=== PATIENT | male | born 1945 | race Caucasian/White ===

== ENCOUNTER → 2016-09-18 | Outpatient (CLI) | payer OTHER, BC ==
[2016-09-18 13:33] LABS: BASO % 0.6 %; BASO ABS # 0.04 K/uL (0-0.2); COMPLETE YES; EOS % 3.8 %; IG% 0.2 %; LYMPH % 29.5 %; LYMPH ABS # 1.85 K/uL (1.2-3.4); MEAN CELL VOLUME 94.3 fL (80-100); MEAN CORPUSCULAR HEMOGLOBIN 31.9 pg (25-34); MEAN CORPUSCULAR HGB CONC 33.8 g/dl (32-36); MEAN PLATELET VOLUME 10.1 fL (7.4-10.4); MONO % 15.6 %; NEUT % 50.3 %; PLATELET COUNT 279 K/uL (130-400); RED BLOOD COUNT 4.77 M/uL (4.7-6.1); WHITE BLOOD COUNT 6.27 K/uL (4.8-10.8)
[2016-09-18 13:47] LABS: BUN/CREATININE RATIO 12.7 (10-20); CALCIUM 8.6 mg/dl (8.5-10.1); CREATININE 0.94 mg/dl (0.60-1.40)
[2016-09-18 13:49] LABS: ALB/GLOB RATIO 1.1 (0.9-2)
== END | disposition home or self-care (01) ==
LOC: C.LABMFLN 10:10
PROVIDERS: ATTEND Family Medicine
DX: K86.89 Other specified diseases of pancreas (principal); Z11.59 Encounter for screening for other viral diseases

== ENCOUNTER → 2016-11-11 | Outpatient (CLI) | payer OTHER, BC ==
[2016-11-11 18:44] LABS: C-REACTIVE PROTEIN < 0.29 mg/dl (0-0.29); IMMUNOGLOBULN M 79.1 mg/dL (40-230)
== END | disposition home or self-care (01) ==
LOC: C.LABMFLN 11:06
PROVIDERS: ATTEND Internal Medicine
DX: K86.1 Other chronic pancreatitis (principal); D89.89 Other specified disorders involving the immune mechanism, not elsewhere classified

== ENCOUNTER → 2016-12-29 | Outpatient (CLI) | payer OTHER, BC | END | disposition home or self-care (01) | LOC: C.LABMFLN 08:05 | PROVIDERS: ATTEND Family Medicine | DX: Z86.73 Personal history of transient ischemic attack (TIA), and cerebral infarction without residual deficits (principal); E78.5 Hyperlipidemia, unspecified; Z85.46 Personal history of malignant neoplasm of prostate ==

== ENCOUNTER → 2017-04-16 | Outpatient (CLI) | payer OTHER, BC | END | disposition home or self-care (01) | LOC: C.LABMFLN 10:48 | PROVIDERS: ATTEND Family Medicine | DX: R19.7 Diarrhea, unspecified (principal) ==

== ENCOUNTER → 2017-09-28 | Outpatient (CLI) | payer OTHER, BC ==
[2017-09-28 20:14] LABS: INFLUENZA A PCR POS for Influ A (NEG); INFLUENZA B PCR Neg for Influ B (NEG)
== END | disposition home or self-care (01) ==
LOC: C.LABMFLN 10:26
PROVIDERS: ATTEND Physician Assistant
DX: R50.9 Fever, unspecified (principal)

== ENCOUNTER → 2017-10-14 | Outpatient (CLI) | payer OTHER, BC ==
[2017-10-16 17:14] LABS: QUANTIF MITOGEN-NIL 9.02 IU/ML; QUANTIFERON NEGATIVE (NEGATIVE); QUANTIFERON NIL 0.09 IU/ML
== END | disposition home or self-care (01) ==
LOC: C.LABMFLN 10:21
PROVIDERS: ATTEND Internal Medicine
DX: D89.89 Other specified disorders involving the immune mechanism, not elsewhere classified (principal); K86.1 Other chronic pancreatitis; Z79.899 Other long term (current) drug therapy

== ENCOUNTER → 2017-12-22 | Outpatient (CLI) | payer OTHER, BC | END | disposition home or self-care (01) | LOC: C.LABMFLN 10:01 | PROVIDERS: ATTEND Family Medicine | DX: Z85.46 Personal history of malignant neoplasm of prostate (principal) ==

== ENCOUNTER 2022-01-07 05:51 | Inpatient (IN) ==
--- NOTE | 2022-01-03 14:31 | Anesthesiology Consultation ---
Date of Service January 03, 2022 Assessment & Plan (1) Encounter for pre-operative examination: Chart Review Chart Review: Acceptable Risk for Surgery (pending preop Covid testing results ) and Patient NOT seen in Pre Admission Testing Per nursing assessment 01/02/2022, patient denies any recent travel. No known COVID infection in the past 90 days. Patient is fully vaccinated for COVID. No known Covid positive exposures or Covid related symptoms. Preop Covid testing 01/03/22= results pending Cystoscopy, ureteroscopy, retrograde pyelogram 11/11/2021 = done under [facility] with LMA #5. Atraumatic placement x1. History Surgery Operation Date: 01/07/22 08:15 Proposed Procedures p Robotic Laparoscopic Assisted Left Nephroureterectomy, Lymph Node Dissection, Intravesical Instillation of Gemcitabine - David Almaraz MD Height/Weight Height: 5 ft 9 in Weight: 65.317 kg Allergies Allergy/AdvReac Type Severity Reaction Status Date / Time No Known Allergies Allergy Verified 01/02/22 07:32 Medications Home Medications Medication Instructions Recorded Confirmed Last Taken pantoprazole 40 mg tablet,delayed 40 mg PO QAM #90 tab 06/06/21 01/02/22 11/08/21 05:15 release lisinopril 5 mg tablet 5 mg PO BID #180 tab 08/17/21 01/02/22 Unknown aspirin 81 mg tablet,delayed 81 mg PO QAM 01/02/22 01/02/22 Unknown release Past Medical History Medical History (Updated 01/03/22 @ 14:26 by Jina Franco PA-C) Autoimmune sclerosing pancreatitis Follows with Rheumatology at [facility] 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 Diarrhea GERD (gastroesophageal reflux disease) H/O peptic ulcer History of prostate cancer Dx'd 2011; S/p prostatectomy [place] ([place]) Hx-TIA (transient ischemic attack) >5 years ago Hypertension Stenosis of left ureter Left mid to distal ureteral mass- biopsy shows low grade urothelial carcinoma Past Family History Family History Aunt Diabetes Cancer Father Diabetes Stroke Mother Leukemia Other No family history of adverse response to anesthesia Past Surgical History Surgical History History of biliary duct stent placement removed History of colonoscopy History of cystoscopy Cystoscopy, left Retrograde Pyelogram with radiographic interpretation, Left Ureteroscopy, Left Ureteral Mass Biopsy History of ERCP History of prostate biopsy History of prostatectomy 01/29/12 [facility] History of tooth extraction S/P cataract surgery bilat Social History Smoking Status: Current every day smoker tobacco type: cigars Smoking cigarettes per day: 3 cigars per day Do You Dip or Chew Tobacco: No Hx Alcohol Use: No Alcohol type: beer alcohol intake frequency: holidays/special occasions only Hx Substance Use: Yes substance use type: marijuana Substance Use Type Other:: smokes 1-2 joints per week Last Used Substance: Unknown Lab Results Anesthesia Preop Results Results Anesthesia Widget: WBC 6.84 K/uL (4.8-10.8) 01/03/22 Hgb 13.8 g/dL (14.0-18.0) L 01/03/22 Hct 41.1 % (42-52) L 01/03/22 Plt 322 K/uL (130-400) 01/03/22 Na 139 mmol/L (136-145) 01/03/22 K 4.4 mmol/L (3.5-5.1) 01/03/22 Cl 105 mmol/L (98-107) 01/03/22 CO2 31 mmol/L (21-32) 01/03/22 BUN 18 mg/dl (6-23) 01/03/22 Creat 1.06 mg/dl (0.6-1.4) 01/03/22 Glucose Level 103 mg/dl (70-99(Fasting)) H 01/03/22 PT 10.2 Seconds (9.0-12.0) 01/03/22 INR 1.0 (0.9-1.1) 01/03/22 Testing Laboratory Results 11/25/21= UA: trace urine protein, moderate urine blood, 0-4 urine RBC URINE CULTURE: No growth Electrocardiogram Date: 10/22/21 Findings: + NSR @ (66bpm ) Left anterior fascicular block Chest X-Ray Date: 10/22/21 1 view CXR Emphysema without acute process Other Testing Chest CT 11/21/21= A few mildly enlarged right hilar lymph nodes. Although metastatic disease is considered unlikely, these nodes are indeterminate and a follow-up chest CT in 6 months to ensure stability is recommended. Multiple small low suspicion pulmonary nodules which can be assessed on follow-up chest CT. Emphysema. Abdomen/Pelvis CT 11/21/21= Moderate left hydronephrosis and mild hydroureter due to to a mid left ureteral mass suggestive of a urothelial malignancy. In addition, urothelial thickening of the proximal left ureter. No evidence of metastatic disease within the abdomen or pelvis. No change in a 7.4 x 5.1 x 4.3 cm enhancing mass centered within the left psoas muscle with expansion of the left L1-L2 neural foramen. 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
[2022-01-07] MEDS ORDERED: LR 15ML/HR IV SCH (06:00)
[2022-01-07] MEDS ORDERED: CIPROFLOXACIN / D5W 400 MG/200 ML BAG IV SCH (06:00)
[2022-01-07] MEDS ORDERED: GEMCITABINE ONE (07:00)
[2022-01-07] MEDS ORDERED: PROPOFOL IV EMULSION 10 MG/ML 20 ML VIAL IV ONE (07:02)
[2022-01-07] MEDS ORDERED: ROCURONIUM BROMIDE 10 MG/ML 5 ML VIAL IV ONE ×6 (07:02→10:29)
[2022-01-07] MEDS ORDERED: LIDOCAINE 2% 2 ML VIAL/AMP(20MG/ML) INFIL ONE (07:02)
[2022-01-07] MEDS ORDERED: fentaNYL citrate 100 MCG/2 ML VIAL ONE ×2 (07:02→10:16)
--- NOTE | 2022-01-07 07:06 | History & Physical Report ---
Date of Service January 07, 2022 Assessment & Plan (1) Urothelial carcinoma of left distal ureter: Plan: 76-year-old male with left distal ureteral mass. To OR for left nephroureterectomy with and possible intravesical instillation of gemcitabine with myself and Dr. Sung Lennon to the OR Patient marked History of Present Illness Primary Care Provider: Mehreen Kasper MD 76-year-old male with a history of prostate cancer status post open prostatectomy. Recent CT scan showed left hydronephrosis and distal left ureteral thickening. Taken to the OR on 11/08/2021 for cystoscopy with left retrograde pyelogram left ureteroscopy and a biopsy of a left ureteral mass. I was unable to get a wire past the mass. The mass returned as low-grade upper tract cancer. Discussed that a left nephroureterectomy was the best option due to the size of the mass. He presents for that today. Preop urine culture was negative. Creatinine is 1.06. 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 Diarrhea GERD (gastroesophageal reflux disease) H/O peptic ulcer History of prostate cancer Dx'd 2011; S/p prostatectomy [place] ([place] of [place]) Hx-TIA (transient ischemic attack) >5 years ago Hypertension Stenosis of left ureter Left mid to distal ureteral mass- biopsy shows low grade urothelial carcinoma Surgical History History of biliary duct stent placement removed History of colonoscopy History of cystoscopy Cystoscopy, left Retrograde Pyelogram with radiographic interpretation, Left Ureteroscopy, Left Ureteral Mass Biopsy History of ERCP History of prostate biopsy History of prostatectomy 01/29/12 [facility] History of tooth extraction S/P cataract surgery bilat Family History Aunt Diabetes Cancer Father Diabetes Stroke Mother Leukemia Other No family history of adverse response to anesthesia Social History Smoking Status: Current every day smoker Cigarettes Per Day: 3 cigars per day; Second Hand Exposure: No; Do You Dip or Chew Tobacco: No; Tobacco Cessation Education Requested by Patient: No Hx Alcohol Use: No Hx Substance Use: Yes Last Used Substance: Unknown Substance Use Type Other:: smokes 1-2 joints per week Preferred Language: Nepalese Communication Ability: Effective Rn Training Required: No Beliefs That Will Affect Care: None marital status: Current Living Situation: Spouse current occupational status: retired Other Information That Helps Us Care for You: No Feels Safe at Home: Yes Safety Concerns: Feels Safe At This Time Dental Care, Regularly: No Physical Activity Frequency: Does not Exercise Seatbelt Use: always Sunscreen Use: Yes Do you think of yourself as: straight/heterosexual Assistive Devices: Glasses Review of Systems 14 point review of systems negative outside of what is listed above in HPI Physical Exam Physical Exam: General: Alert and oriented, no acute distress HEENT: Normocephalic, mucous membranes moist Pulmonary: Nonlabored respirations Abdomen: Nondistended Extremities: Moves all 4 spontaneously Neuro: No gross deficits Skin: Warm, dry, no rashes noted Results & Data ([facility]) Vital Signs (Past 12 Hours) Vital Signs Temp Pulse Resp BP Pulse Ox 01/07/22 06:24 36.7 C 72 16 157/95 H 97
[2022-01-07] MEDS ORDERED: ONDANSETRON INJ 2 MG/ML 2 ML VIAL ONE (07:09)
[2022-01-07] MEDS ORDERED: DEXAMETHASONE SOD INJ 4 MG/ML VIAL ONE (07:09)
[2022-01-07] MEDS ORDERED: BUPIVACAINE 0.5 % 5 MG/1 ML MPF 30ML VIAL ONE (07:23)
[2022-01-07] MEDS ORDERED: MEPERIDINE HCL 25 MG/ML CARP/VIAL IV PRN (07:26)
[2022-01-07] MEDS ORDERED: ATROPINE SULFATE 0.1 MG/ML 10ML SYR IV PRN (07:26)
[2022-01-07] MEDS ORDERED: ePHEDrine sulfate 50 MG/ML AMP IV PRN (07:26)
[2022-01-07] MEDS ORDERED: ONDANSETRON INJ 2 MG/ML 2 ML VIAL IV PRN ×2 (07:26→12:29)
[2022-01-07] MEDS ORDERED: LABETALOL HCL IV 5 MG/ML 20ML IV PRN (07:26)
[2022-01-07] MEDS ORDERED: PHENYLEPHRINE 100MCG/ML 5ML SYR IV PRN (07:26)
[2022-01-07] MEDS ORDERED: TISSEEL FIBRIN SEALANT 10ML TOP ONE (08:50)
[2022-01-07] MEDS ORDERED: GLYCOPYRROLATE 0.2 MG/ML VIAL ONE (10:29)
[2022-01-07] MEDS ORDERED: NEOSTIGMINE METHYLSULFATE 1 MG/ML 10ML VIAL ONE (10:29)
--- NOTE | 2022-01-07 11:14 | Operative Report ---
PG Post Operative Report Pre & Post Diagnosis Operation Date: 01/07/22 07:30 Pre-Op Diagnosis: Urothelial Carcinoma of Left Distal Ureter Post-Op Diagnosis: Urothelial Carcinoma of Left Distal Ureter I identified the patient and participated in the time-out.: Yes Procedure Operation Date: 01/07/22 07:30 Actual Procedures p Robotic assisted Laparoscopic Left Nephroureterectomy(Left) - David Almaraz MD Surgeon David Almaraz MD [employer] Baljeet Cantu Estimated Blood Loss 100 Findings Consistent with Post-Op Diagnosis Specimens Kidney and left ureter Description of Procedure He was identified in the preoperative holding area and appropriate informed consents reviewed and completed and he was transported to the operating suite. Upon arrival received appropriate preoperative antibiotics in the form of ciprofloxacin. He was placed under general anesthesia and positioned in a [id number] left side up lateral decubitus position with the bed flexed. The abdomen was insufflated with a Veress needle passed into the left upper quadrant. We then marked tentative robotic port sites with the first port p laced at the costal margin just lateral to the rectus border the second placed approximately 8 cm inferior to the third placed approximately 8 cm inferior in the fourth placed in the midline penitentiary between the umbilicus and the pubic symphysis. A 12 mm social media assistant port was placed in the midline approximately 6 cm superior to the umbilicus. These were all placed under direct vision after the top port was placed with a Visiport. Of note there was no significant adhesive disease or other abnormality. After docking the robot we began to incise the white line of Toldt mobilized the colon medially. In the pelvis I had to free this from the lateral pelvic sidewall. We were able to identify the ureter as it coursed over the iliac vessels. There was a notable swelling in this area consistent with the tumor. I dissected around it circumferentially and elevated the ureter off the underlying structures. We then traced this both superiorly and inferiorly as far as we could easily dissect. This was done with a combination of monopolar electrocautery and some with bipolar electrocautery. As we progressed into the pelvis we dissected towards the junction of the ureter and the bladder. Of note, he has had a prior open prostatectomy but this did not seem to drastically affect her dissection. As we approached the bladder we distended with saline to help demarcate the bladder junction. Before dissecting completely to the bladder I did place a clip across the distal ureter to ensure no unintentional tumor spillage. Before transecting the bladder cuff I placed a 3 OV lock suture through the bladder mucosa just superior to the anticipated incision for the bladder cuff. I then incised the bladder cuff opening the bladder. We unclamped the bladder and allow the saline to drain as I closed the bladder utilizing the previously placed 3 OV lock. The opening closed without difficulty and was watertight. This entirely freed the ureter and cuff. Hemostasis in the pelvis was excellent. We then turned our attention towards the kidney portion of the case. I repositioned the camera and robotic instruments to allow better access to the kidney and I continue to incise the white line of Toldt and expose Gerota's fascia. Of note, the patient has a psoas mass that has been present for some time and this slightly altered my ability to dissect. As planned prior to the procedure, as I reached the superior limits of my dissection I undocked the robot and made a Saab style incision in the left lower quadrant utilizing one of the ports previously placed. I then finished the surgery using a hand- assisted lap approach. We continued to mobilize the kidney from the underside of the spleen and omentum. I incised the peritoneum at the upper aspect of the kidney to allow better mobilization. I went back to my prior dissection of the gonadal and ureter and followed them up towards the hilum. Of note, consistent with preoperative imaging, he has a lower pole artery. This was controlled with 2 Weck clips placed on the aortic side and 1 clip placed on the kidney side and then transected utilizing harmonic scalpel. I then dissected to the inferior aspect of the renal vein. I was able to identify the adrenal vein on the superior aspect and dissected a window just lateral to the adrenal vein. I then completely controlled the renal vein and main artery with a single staple load position lateral to the adrenal vein. A second staple load was placed between the upper pole of the kidney and the adrenal followed by completion of the superior dissection utilizing harmonic scalpel. The lateral attachments were freed and although there was some adherence of the posterior aspect of the kidney to the underlying psoas mass I was able to free this bluntly. We then en sure the ureter was entirely dissected and freed before extracting the specimen through the previously made hand port. Hemostasis was excellent. The 12 mm social media assistant port and the superiormost robotic port were closed with a 0 Vicryl [id number] suture. The hand port was closed utilizing 3 layers of 0 Vicryl. All skin incisions were closed with 4-0 Monocryl and Dermabond. Half percent Marcaine was utilized infiltrate all incisions prior to closure. A drain was placed through the inferior most robotic port and this was sutured in place utilizing a 3-0 nylon. Quick catheter was left in place and the case was concluded. He was reversed of anesthesia and taken to the recovery room in stable condition. There were no complications. Of note Dr. Baljeet Cantu assisted from incision to closure and through all aspects of the case. I attest to the content of the Intraoperative Record and any orders documented therein. Any exceptions are noted below.
[2022-01-07] MEDS: fentaNYL citrate 100 MCG/2 ML VIAL IV PRN ×4 (11:20→11:35)
[2022-01-07 11:36] LABS: BUN Creatinine Ratio 15.6 (10-20); Calcium 8.3 mg/dl (8.5-10.1); Creatinine Clr Calc Pharmacy 54.9 ml/min; Est GFR (African American) 76.5 ml/min; Potassium 3.9 mmol/L (3.5-5.1)
[2022-01-07 11:41] LABS: Basophils # (auto) 0.01 K/uL (0-0.2); Basophils % (auto) 0.1 %; Eosinophils # (auto) 0.01 K/uL (0-0.5); Eosinophils % (auto) 0.1 %; Hematocrit (blood only) 38.3 % (42-52); Hemoglobin 12.8 g/dL (14.0-18.0); Immature Granulocytes # (auto) 0.08 K/uL (0.00-0.02); Immature Granulocytes % (auto) 0.4 %; Lymphocytes # (auto) 1.28 K/uL (1.2-3.4); Lymphocytes % (auto) 6.5 %; Mean Corpuscular Hemoglobin 31.6 pg (25-34); Mean Corpuscular Hgb Conc 33.4 g/dL (32-36); Mean Corpuscular Volume 94.6 fL (80-100); Mean Platelet Volume 9.5 fL (7.4-10.4); Monocytes # (auto) 0.07 K/uL (0.11-0.59); Monocytes % (auto) 0.4 %; Neutrophils # (auto) 18.26 K/uL (1.4-6.5); Neutrophils % (auto) 92.5 %; Platelet Count 284 K/uL (130-400); RDW Coefficient of Variation 14.1 % (11.5-14.5); RDW Standard Deviation 48.6 fL (36.4-46.3); Red Blood Count 4.05 M/uL (4.7-6.1); White Blood Count 19.71 K/uL (4.8-10.8)
[2022-01-07] MEDS: HYDROmorphone INJ 1 MG/ML SYRINGE IV PRN ×4 (11:41→11:56)
--- NOTE | 2022-01-07 12:05 | Anesthesiology Progress Note ---
Date of Service January 07, 2022 Anesthesia Post Procedure Vital Signs Vital Signs: Temp Pulse Pulse Resp BP Pulse Ox 01/07/22 11:55 86 19 157/77 H 94 01/07/22 11:45 56 L 15 163/80 H 100 01/07/22 11:35 77 19 156/79 H 100 01/07/22 11:25 62 12 156/77 H 100 01/07/22 11:15 63 16 143/83 H 100 01/07/22 11:05 74 17 152/77 H 100 01/07/22 10:58 36.2 C L 86 18 159/85 H 100 01/07/22 06:24 36.7 C 72 16 157/95 H 97 Pain Intensity Abdomen: Pain Intensity: 1 Transfer of Care Handoff Completed per policy Notes Mental Status: alert / awake / arousable Patient Amnestic to Procedure: Yes Nausea / Vomiting: adequately controlled Pain: adequately controlled Airway Patency, RR, SpO2: stable & adequate BP & HR: stable & adequate Hydration State: stable & adequate Anesthetic Complications: no major complications apparent and Pt Satisfied with anesthetic care
[2022-01-07] MEDS ORDERED: MoRPHine SULFATE 2 MG/ML CARP IV PRN (12:29)
[2022-01-07] MEDS ORDERED: oxyCODONE HCL IR 5 MG TAB (IMMEDIATE RELEASE) PO PRN (12:29)
[2022-01-07] MEDS ORDERED: ACETAMINOPHEN 325 MG TAB PO PRN (12:29)
[2022-01-07] MEDS ORDERED: MoRPHine SULFATE 4 MG/ML 1 ML CARP\\VIAL IV PRN (12:29)
[2022-01-07] MEDS: LACTATED RINGER'S 1,000 ML IV SCH ×2 (12:30→21:01)
[2022-01-07] MEDS: WATER INSTIL SCH (13:20)
[2022-01-07] MEDS: GEMCITABINE HCL INSTIL SCH (13:20)
[2022-01-07] MEDS: STERILE INSTIL SCH (13:20)
[2022-01-07] MEDS: oxyCODONE HCL IR 5 MG TAB (IMMEDIATE RELEASE) PO PRN ×2 (13:25→17:31)
[2022-01-07] MEDS: ceFAZolin 2000MG 2,000 MG/15 ML SYR IV SCH ×2 (13:29→20:59)
[2022-01-07] MEDS: DOCUSATE SODIUM 100 MG CAP PO SCH (20:59)
[2022-01-07] MEDS: lisinopril 5 MG TAB PO SCH (21:00)
[2022-01-07] MEDS: HEPARIN SOD 5,000 UNIT/0.5 ML VIAL SQ SCH (21:00)
[2022-01-08 06:12] LABS: Hematocrit (blood only) 35.9 % (42-52); Hemoglobin 11.8 g/dL (14.0-18.0); Immature Granulocytes # (auto) 0.04 K/uL (0.00-0.02); Immature Granulocytes % (auto) 0.3 %; Lymphocytes # (auto) 1.27 K/uL (1.2-3.4); Lymphocytes % (auto) 9.1 %; Mean Corpuscular Hemoglobin 31.1 pg (25-34); Mean Corpuscular Hgb Conc 32.9 g/dL (32-36); Mean Corpuscular Volume 94.7 fL (80-100); Mean Platelet Volume 9.6 fL (7.4-10.4); Monocytes # (auto) 1.61 K/uL (0.11-0.59); Monocytes % (auto) 11.5 %; Neutrophils # (auto) 11.05 K/uL (1.4-6.5); Neutrophils % (auto) 79.1 %; Platelet Count 269 K/uL (130-400); RDW Coefficient of Variation 14.2 % (11.5-14.5); RDW Standard Deviation 49.3 fL (36.4-46.3); Red Blood Count 3.79 M/uL (4.7-6.1); White Blood Count 13.97 K/uL (4.8-10.8)
[2022-01-08 06:34] LABS: BUN Creatinine Ratio 14.8 (10-20); Calcium 8.2 mg/dl (8.5-10.1); Creatinine Clr Calc Pharmacy 42.5 ml/min; Est GFR (African American) 52.5 ml/min; Est GFR (Non-African American) 45.3 ml/min; Potassium 4.5 mmol/L (3.5-5.1)
[2022-01-08] MEDS: LACTATED RINGER'S 1,000 ML IV SCH ×2 (07:30→17:30)
[2022-01-08] MEDS: lisinopril 5 MG TAB PO SCH ×2 (07:31→21:00)
[2022-01-08] MEDS: DOCUSATE SODIUM 100 MG CAP PO SCH ×2 (07:32→21:00)
[2022-01-08] MEDS: PANTOprazole 40 MG TAB PO SCH (07:32)
[2022-01-08] MEDS: HEPARIN SOD 5,000 UNIT/0.5 ML VIAL SQ SCH ×2 (07:32→21:00)
--- NOTE | 2022-01-08 08:28 | Urology Progress Note ---
Date of Service January 08, 2022 Assessment & Plan (1) Urothelial carcinoma of left distal ureter: Plan: 76-year-old male who is status post robotic/hand-assisted left nephroureterectomy on 01/07/2022 Continue pain regimen Advance to regular diet Maintain Quick catheter We will likely remove DEEP later today or tomorrow Creatinine uptrending which is expected. Leukocytosis downtrending. Continue antibiotics Will likely decrease IV fluids later today Continue heparin. Ambulate Anticipate discharge home tomorrow Admission and Anticipated Discharge Date Admission Date: January 07, 2022 Subjective No acute issues overnight. Hemodynamically stable. Minimal drain output. Urine output is appropriate. Leukocytosis is downtrending and likely was reactive. Creatinine has slightly up trended which is as expected. Pain well controlled. Tolerating clear liquid diet. Out of bed to chair yesterday. Yet to pass flatus. Review of Systems Review of Systems: 14 point review of systems negative outside of what is listed above in HPI Physical Exam Physical Exam: General: Alert and oriented, no acute distress HEENT: Normocephalic, mucous membranes moist Cardiovascular: Regular rate Pulmonary: Nonlabored respirations Abdomen: Nondistended, appropriately tender, soft. Incisions clean dry and intact. DEEP drain draining minimal serosanguineous fluid : Quick catheter draining clear urine Extremities: Moves all 4 spontaneously Neuro: No gross deficits Skin: Warm, dry, no rashes noted Results & Data ([facility]) Vital Signs (Past 12 Hours) Vital Signs Temp Pulse Resp BP Pulse Ox 01/08/22 07:12 36.7 C 18 142/74 H 98 01/08/22 02:43 36.9 C 68 18 128/64 94 01/07/22 23:22 37 C 75 16 121/67 95 01/07/22 20:30 36.9 C 65 16 138/70 97 PG Care Time/CCT Total # of Minutes Spent Total Time Spent with Patient: Total time spent is greater than 50% in coordination of care (as documented) at patient's floor/unit and/or counseling patient: [place] [address] Subseq Hosp Care Lvl 2 Patient Type Established Diagnoses Urothelial carcinoma of left distal ureter C66.2
[2022-01-08] MEDS: oxyCODONE HCL IR 5 MG TAB (IMMEDIATE RELEASE) PO PRN (21:02)
[2022-01-09] MEDS: LACTATED RINGER'S 1,000 ML IV SCH ×2 (04:09→08:36)
[2022-01-09 06:51] LABS: Basophils # (auto) 0.01 K/uL (0-0.2); Basophils % (auto) 0.1 %; Eosinophils % (auto) 0.9 %; Hematocrit (blood only) 34.7 % (42-52); Hemoglobin 11.6 g/dL (14.0-18.0); Immature Granulocytes # (auto) 0.03 K/uL (0.00-0.02); Immature Granulocytes % (auto) 0.3 %; Lymphocytes % (auto) 13.7 %; Mean Corpuscular Hemoglobin 31.8 pg (25-34); Mean Corpuscular Hgb Conc 33.4 g/dL (32-36); Mean Corpuscular Volume 95.1 fL (80-100); Mean Platelet Volume 9.8 fL (7.4-10.4); Neutrophils # (auto) 8.24 K/uL (1.4-6.5); Platelet Count 240 K/uL (130-400); RDW Standard Deviation 48.9 fL (36.4-46.3); Red Blood Count 3.65 M/uL (4.7-6.1); White Blood Count 10.98 K/uL (4.8-10.8)
--- NOTE | 2022-01-09 07:10 | Urology Progress Note ---
Date of Service January 09, 2022 Assessment & Plan (1) Urothelial carcinoma of left distal ureter: Plan: 76-year-old male who is status post robotic/hand-assisted left nephroureterectomy on 01/07/2022 Continue pain regimen -Continue regular diet Maintain Quick catheter DEEP drain removed yesterday Hemoglobin stable. BMP pending Continue antibiotics Decrease IV fluids Continue heparin. Ambulate Anticipate discharge home later today. Patient will have plain film cystogram and Quick removal next week and then will return to clinic week following for pathology review. Admission and Anticipated Discharge Date Admission Date: January 07, 2022 Subjective No acute issues overnight. Pain well controlled. Hemodynamically stable. To lerating diet and ambulating. DEEP drain removed yesterday. Urine output appropriate via Quick catheter. Hemoglobin stable today, BMP pending. Feels well enough to go home. Review of Systems Review of Systems: 14 point review of systems negative outside of what is listed above in HPI Physical Exam Physical Exam: General: Alert and oriented, no acute distress HEENT: Normocephalic, mucous membranes moist Pulmonary: Nonlabored respirations Abdomen: Soft, appropriately tender, nondistended. Incisions clean dry and intact : Quick catheter draining clear urine. Extremities: Moves all 4 spontaneously Neuro: No gross deficits Skin: Warm, dry, no rashes noted Results & Data ([facility]) Vital Signs (Past 12 Hours) Vital Signs Temp Pulse Pulse Resp BP Pulse Ox 01/09/22 04:10 36.6 C 60 16 145/70 H 95 01/09/22 00:23 36.6 C 65 16 140/74 94 01/08/22 20:07 36.8 C 64 16 147/87 H 92 PG Care Time/CCT Total # of Minutes Spent Total Time Spent with Patient: Total time spent is greater than 50% in coordination of care (as documented) at patient's floor/unit and/or counseling patient: Coding Level of Care Code 43104 Subseq Hosp Care Lvl 2 Diagnoses Urothelial carcinoma of left distal ureter C66.2
[2022-01-09 07:11] LABS: BUN Creatinine Ratio 15.7 (10-20); Calcium 8.2 mg/dl (8.5-10.1); Creatinine Clr Calc Pharmacy 41.4 ml/min; Est GFR (African American) 50.8 ml/min; Est GFR (Non-African American) 43.8 ml/min; Potassium 4.1 mmol/L (3.5-5.1)
[2022-01-09] MEDS: DOCUSATE SODIUM 100 MG CAP PO SCH (08:38)
[2022-01-09] MEDS: lisinopril 5 MG TAB PO SCH (08:39)
[2022-01-09] MEDS: PANTOprazole 40 MG TAB PO SCH (08:39)
[2022-01-09] MEDS: HEPARIN SOD 5,000 UNIT/0.5 ML VIAL SQ SCH (08:40)
--- NOTE | 2022-01-09 13:01 | Discharge Summary ---
Date of Service January 09, 2022 Admission HPI Per Admitting Provider 76-year-old male with urothelial carcinoma of left distal ureter who presented for left nephroureterectomy Admission Exam Per Admitting Provider General: Alert and oriented, no acute distress HEENT: Normocephalic, mucous membranes moist Pulmonary: Nonlabored respirations Abdomen: Nondistended Extremities: Moves all 4 spontaneously Neuro: No gross deficits Skin: Warm, dry, no rashes noted Principal Diagnosis Urothelial carcinoma of left distal ureter Discharge Exam General: Alert and oriented, no acute distress HEENT: Normocephalic, mucous membranes moist Pulmonary: Nonlabored respirations Abdomen: Soft, appropriately tender, nondistended. Incisions clean dry and intact : Quick catheter draining clear urine. Extremities: Moves all 4 spontaneously Neuro: No gross deficits Skin: Warm, dry, no rashes noted Discharge Data Allergies Allergy/AdvReac Type Severity Reaction Status Date / Time No Known Allergies Allergy Verified 01/07/22 06:22 Procedures Performed Operation Date: 01/07/22 07:30 Actual Procedures p Robotic assisted Laparoscopic Left Nephroureterectomy(Left) - David Almaraz MD Hospital Course (1) Urothelial carcinoma of left distal ureter: 76-year-old male who was admitted status post robotic/hand-assisted left nephroureterectomy on 01/07/22. He had no acute issues postoperatively. He remained hemodynamically stable and his pain was well controlled. Tolerated diet and ambulated without issue. DEEP drain had minimal output and was removed postop day #1. Urine output was appropriate via Quick catheter.Leukocytosis downtrended and was likely reactive. Creatinine had slightly up trended which was as expected. He was discharged home with Quick catheter on postop day #2 in stable condition. Patient to have cystogram and Quick removal next week and then will return to clinic for pathology review. Total Time Total Time Spent Total Time Spent (In Minutes): 15 Discharge Plan Discharge Items Patient Disposition: Home - Self-Care Reason For Visit: Urothelial Carcinoma of Left Distal Ureter Discharge Diagnosis: Urothelial Carcinoma of Left Distal Ureter Activity: Per Instructions section Lifting: No more than 25 pounds Bathing Comment: OK to shower. No tub baths or soaks. Sexual Activity: Wait until after follow-up appointment Exercise/Sports: Wait until after follow-up appointment Driving/Machine Use: Do not drive if taking prescription pain medication. Non-emergency contact: Surgeon and Urologist Call non-emergency contact if: you have any medication questions, your pain is not controlled, your pain is worsening, you have a fever, your wound has in creased redness, your wound has increased drainage and your wound pain has increased Follow-up/Referrals: Mehreen Kasper MD [Primary Care Provider] - Baljeet Cantu MD [Physician] - 01/23/22 4:00 pm [facility],Nurse [FAKE FOR SCHEDULES] - 01/14/22 11:30 am Diet: Regular Addtl Attending Provider Instructions: Please take all medications as prescribed and keep all follow-ups as scheduled. Please call the urology office at [phone] with any questions, concerns or need to reschedule appointments for any reason. We are happy to assist you. You are scheduled for a cystogram with [facility] on 01/14/22 at 10:30AM. You can resume your aspirin on 01/14/22. Recovering at home: We recommend having someone with you for the first few days after surgery to help care for you. It is okay to shower. Please avoid swimming, bathing or using hot tub until incisions are well healed. Avoid driving until you are not requiring pain medication any further. Walk at least a few times a day. Increase your distance, as you feel able. Stairs in your home are okay. Please avoid strenuous or sexual activity until your follow-up. We recommend using stool softener (i.e. Colace) to prevent constipation and straining, especially the first two weeks post operatively. This has been sent to your pharmacy. Stay well hydrated. Quick Catheter care: Keep the catheter well secured with either a leg back or leg strap with large bag. Empty your bag when it's about half full. You may notice some blood in the bag. This is normal after surgery and while the catheter is in place. Use mild soap (such as Dove or Dial) and water to wash the catheter and the head of your penis daily, or more frequently if needed. Return to your normal diet, we encourage good protein intake to promote healing. You may shower as normal. Please avoid tub baths or soaking until catheter removed and incisions well healed. Wearing sweat pants while you have the catheter is recommended, they will be more comfortable. Call [facility] at [phone] right away if you have any of the following: Chest pain or trouble breathing (call 911 or go to the hospital) Fever of 101F or higher, uncontrolled vomiting Heavy bleeding, clots, or bright red blood from the catheter Catheter that falls out or stops draining Foul-smelling discharge from your catheter Redness, swelling, warmth, or increased pain at your incision site Drainage, pus, or bleeding from your incision Pending Studies at Discharge: Yes Stand-Alone Forms: [facility], Smoking Cessation Medications and DC Order Prescriptions: New oxycodone-acetaminophen [Percocet] 5-325 mg tablet 1 tab PO Q8H PRN (Reason: Pain) Qty: 7 RF: 0 docusate sodium [Colace] 100 mg capsule 100 mg PO BID Qty: 30 RF: 0 Continued pantoprazole 40 mg tablet,delayed release (DR/EC) 40 mg PO QAM Qty: 90 RF: 3 lisinopril 5 mg tablet 5 mg PO BID Qty: 180 RF: 3 aspirin 81 mg Tablet,Delayed Release (Dr/Ec) 81 mg PO QAM RF: 0 Discharge Orders: Discharge Order (Routine); Ordered 01/09/22 Ordered By: Pat Lundy Admission Data Admit Date/Time: 01/07/22 10:56 Attending Provider: David Almaraz Admit Provider: David Almaraz Primary Care Provider: Mehreen Kasper Other Interventions: Discharge Summary Assessment (RN) Last Done: 01/09/22 11:57 Coding Level of Care Code D/C DAY MANAGEMENT <30 MINS Diagnoses Urothelial carcinoma of left distal ureter C66.2
== END 2022-01-09 12:53 | disposition home or self-care (01) | DRG 658 ==
LOC: ASU 05:51 → 3N 10:56